=== PATIENT | male | born 2000 | race Native Hawaiian/Other Pacific Islander ===

== ENCOUNTER 2022-05-14 13:45 | Outpatient (CLI) | payer OTHER ==
[2022-05-14 14:36] VITALS: BP 118/72
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
== END 2022-05-14 13:46 | disposition home or self-care (01) ==
LOC: SC 13:45
PROVIDERS: ATTEND Nurse Practitioner Family
DX: R06.83 Snoring (principal); G47.8 Other sleep disorders; R06.81 Apnea, not elsewhere classified; R51.9 Headache, unspecified; G47.10 Hypersomnia, unspecified; R53.83 Other fatigue; E66.9 Obesity, unspecified; Z68.32 Body mass index [BMI] 32.0-32.9, adult
CPT/HCPCS: 99203; 99212

== ENCOUNTER 2024-03-02 13:59 | Outpatient (CLI) | payer OTHER ==
--- NOTE | 2024-03-02 14:24 | Sleep Patient Instructions ---
Sleep Center Visit Summary - Patient Visit Information Reason for Visit: Follow-up with sleep care for evaluation of sleep disordered breathing and other sleep issues. - Patient Instructions Instructions Attached: Sleep Study Additional Instructions: You will be completing a sleep study, either an in-lab polysomnography (PSG) or home sleep study (HST). You will follow-up in the sleep care office after the sleep study is completed to hear the results and talk about therapy, if needed. You will be called by our office staff to schedule this appointment, but you may contact us with any questions. - Clinic Information Contact: [facility] [address] [place] [address] [email or web address] T: [phone]
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
[2024-03-02 14:35] VITALS: BP 147/93; O2SAT 97
== END 2024-03-02 14:00 | disposition home or self-care (01) ==
LOC: SC 13:59
PROVIDERS: ATTEND Nurse Practitioner Family
DX: R06.83 Snoring (principal); R06.81 Apnea, not elsewhere classified; G47.8 Other sleep disorders; R51.9 Headache, unspecified; R53.83 Other fatigue; E66.9 Obesity, unspecified; Z68.36 Body mass index [BMI] 36.0-36.9, adult
CPT/HCPCS: 99212; 99213